=== PATIENT | male | born 1970 | race Caucasian/White ===

== ENCOUNTER 2016-03-15 18:24 | Emergency (ER) | payer OTHER ==
[~2016-03-15] VITALS: Ht 170.2 cm; Wt 87.1 kg
[2016-03-15 19:16] VITALS: BP 154/83
[2016-03-15] MEDS ORDERED: KETOROLAC TROMETHAMINE INJ 60 MG/2 ML VIAL IM ONE ×2 (20:00→20:05)
== END 2016-03-15 20:56 | disposition home or self-care (01) ==
LOC: ER 18:30
DX: M54.5 Low back pain (principal); G89.29 Other chronic pain; M51.26 Other intervertebral disc displacement, lumbar region; Z90.81 Acquired absence of spleen
CPT/HCPCS: A4606; J1885; Z7610

== ENCOUNTER 2016-04-25 23:47 | Emergency (ER) | payer OTHER ==
[~2016-04-25] VITALS: Ht 170.2 cm; Wt 86.2 kg
[2016-04-26] MEDS ORDERED: ONDANSETRON HCL/PF 4 MG/2 ML VIAL ONE (01:24)
[2016-04-26] MEDS ORDERED: HYDROMORPHONE 1 MG/1 ML DISP.SYRIN ONE (01:24)
[2016-04-26] MEDS ORDERED: ONDANSETRON 4 MG TAB.RAPDIS ONE (01:25)
[2016-04-26] MEDS ORDERED: ONDANSETRON 4 MG TAB.RAPDIS SL ONE (01:30)
[2016-04-26] MEDS ORDERED: HYDROMORPHONE 1 MG/1 ML DISP.SYRIN IM ONE (01:30)
[2016-04-26] MEDS ORDERED: DEXAMETHASONE SOD PHOSPHATE 10 MG/ML VIAL ONE (02:28)
[2016-04-26] MEDS ORDERED: DEXAMETHASONE SOD PHOSPHATE 4 MG/ML VIAL IV ONE (02:30)
[2016-04-26 02:37] VITALS: BP 133/78
== END 2016-04-26 02:38 | disposition home or self-care (01) ==
LOC: ER 23:47
DX: M54.5 Low back pain (principal); G89.29 Other chronic pain; M51.26 Other intervertebral disc displacement, lumbar region; Z90.49 Acquired absence of other specified parts of digestive tract; Z98.890 Other specified postprocedural states
CPT/HCPCS: 96372; 99283; A4606; J1100; J1170; J2405; Q0162; Z7610

== ENCOUNTER 2016-08-08 19:28 | Emergency (ER) | payer OTHER ==
[~2016-08-08] VITALS: Ht 170.2 cm; Wt 83.9 kg
--- NOTE | 2016-08-08 21:20 | NUR ---
TO BED 4 AMBULATORY C/O N/V/D SINCE MONDAY. PT AAOX4 NO ACUTE DISTRESS NOTED, RESP EVEN AND UNALBORED. PT DENIES PAIN OR DISCOMFORT AT THIS TIME. [employer] AT BEDSIDE TO EVAL PT WITH ORDERS RECEIVED.
[2016-08-08] MEDS ORDERED: ONDANSETRON HCL/PF 4 MG/2 ML VIAL ONE (21:30)
[2016-08-08] MEDS ORDERED: IV SET PRIMARY 1 EA INFUS.SET MC ONE (21:30)
[2016-08-08] MEDS ORDERED: IV NS 0.9% 2,000 ML ONE (21:30)
[2016-08-08] MEDS ORDERED: ONDANSETRON HCL/PF 4 MG/2 ML VIAL IVP ONE (21:30)
[2016-08-08] MEDS ORDERED: IV NS 0.9% 1,000 ML BAG IV ONE (21:30)
--- NOTE | 2016-08-08 21:30 | NUR ---
STARTED SL 18G TO L AC, BLOOD DRAWN AND SENT TO LAB.
[2016-08-08 21:37] LABS: BASOPHILS % (AUTO) 0.5 % (0.0-2.0); EOSINOPHILS # (AUTO) 0.1 /CMM (0.0-0.7); EOSINOPHILS % (AUTO) 0.8 % (0.0-6.0); HEMATOCRIT 47 % (39-51); HEMOGLOBIN 15.8 g/dL (13.5-17.5); LYMPHOCYTES # (AUTO) 2.7 /CMM (0.8-4.8); LYMPHOCYTES % (AUTO) 32.2 % (20.0-44.0); MEAN CORPUSCULAR HEMOGLOBIN 31 PG (26.0-33.0); MEAN CORPUSCULAR HGB CONC 34 g/dl (31.0-36.0); MEAN CORPUSCULAR VOLUME 91 fL (80-96); MONOCYTES % (AUTO) 11.5 % (2.0-12.0); NEUTROPHILS # (AUTO) 4.6 /CMM (1.8-8.9); PLATELET COUNT (AUTO) 551 /CMM (150-450); RDW COEFFICIENT OF VARIATION 12.4 (11.5-15.0); RED BLOOD CELL COUNT(AUTO) 5.19 MIL/uL (4.5-6.0); WHITE BLOOD COUNT (AUTO) 8.4 K/uL (4.3-11.0)
--- NOTE | 2016-08-08 21:39 | NUR ---
PT MEDICATED BY RN PER ER MD ORDER.
[2016-08-08 21:47] LABS: CALCIUM, SERUM 8.7 mg/dL (8.5-10.1); CREATININE 1.2 mg/dL (0.6-1.3); POTASSIUM 3.6 mmol/L (3.5-5.1)
[2016-08-08 21:53] LABS: ALBUMIN 3.7 g/dL (3.4-5.0); BILIRUBIN,DIRECT 0.1 mg/dL (0.0-0.2); BILIRUBIN,TOTAL 0.4 mg/dL (0.2-1.0); TOTAL PROTEIN, SERUM 7.5 g/dL (6.4-8.2)
--- NOTE | 2016-08-08 22:59 | NUR ---
IV removed. Catheter intact and site benign. Pressure and 4x4 applied to site. No bleeding noted.
--- NOTE | 2016-08-08 22:59 | NUR ---
Patient discharged to home in stable condition. Written and verbal after care instructions given. Patient verbalizes understanding of instruction. ambulatory with a steady gait noted. pt denies n/v
[2016-08-08 23:14] VITALS: BP 148/78
== END 2016-08-08 23:14 | disposition home or self-care (01) ==
LOC: ER 19:30
DX: R11.2 Nausea with vomiting, unspecified (principal); R19.7 Diarrhea, unspecified; F17.200 Nicotine dependence, unspecified, uncomplicated; I10 Essential (primary) hypertension; Z90.81 Acquired absence of spleen
CPT/HCPCS: 36415; 80048-TC; 80076-TC; 83690-TC; 85025-TC; A4606; J2405; J7030; Z7610

== ENCOUNTER 2018-05-01 21:47 | Emergency (ER) | payer OTHER ==
[~2018-05-01] VITALS: Ht 167.6 cm; Wt 83.9 kg
[2018-05-01 21:55] VITALS: BP 148/100
[2018-05-01] MEDS ORDERED: PROCHLORPERAZINE EDISYLATE 10 MG/2 ML VIAL ONE (22:28)
[2018-05-01] MEDS ORDERED: IBUPROFEN 400 MG TABLET ONE (22:28)
[2018-05-01] MEDS ORDERED: IBUPROFEN 400 MG TABLET PO ONE (22:30)
[2018-05-01] MEDS ORDERED: PROCHLORPERAZINE EDISYLATE 10 MG/2 ML VIAL IM ONE (22:30)
--- NOTE | 2018-05-01 22:45 | NUR ---
PER EVETTE RELEASED FROM CUSTODY.
--- NOTE | 2018-05-01 23:03 | NUR ---
Patient discharged to home in stable condition. Written and verbal after care instructions given. Patient verbalizes understanding of instruction. ambulatory with a steady gait. pt provided with homeless resources, food, pt has own clothes, and tap card.
== END 2018-05-01 23:10 | disposition home or self-care (01) ==
LOC: ER 21:50
DX: G89.29 Other chronic pain (principal); M25.562 Pain in left knee; F11.20 Opioid dependence, uncomplicated; M54.9 Dorsalgia, unspecified; Z98.890 Other specified postprocedural states; Z60.2 Problems related to living alone
CPT/HCPCS: 96372; 99283; A4606; J0780

== ENCOUNTER 2018-10-28 23:23 | Emergency (ER) | payer OTHER ==
[~2018-10-28] VITALS: Ht 170.2 cm; Wt 81.6 kg
[2018-10-28 23:25] VITALS: BP 165/106
--- NOTE | 2018-10-28 23:50 | NUR ---
PT CAME IN WITH L EJ 18G. L EJ WAS REMOVED UPON DISCHARGE.
--- NOTE | 2018-10-29 | NUR ---
PT CLEARED FOR D/C, IV removed. Catheter intact and site benign. Pressure and 4x4 applied to site. No bleeding noted.Patient discharged to under [facility]d custody in stable condition. Written and verbal after care instructions given. Patient verbalizes understanding of instruction. pt ambulatory with steady gait.
--- NOTE | 2018-10-29 01:37 | NUR ---
Note darinone in EDM - 10/29/18 at 0139 by ALIS PT CLEARED FOR D/C, IV removed. Catheter intact and site benign. Pressure and 4x4 applied to site. No bleeding noted.Patient discharged to under [facility] custody in stable condition. Written and verbal after care instructions given. Patient verbalizes understanding of instruction. pt ambulatory with steady gait.
== END 2018-10-29 ==
LOC: ER 23:35
DX: F11.90 Opioid use, unspecified, uncomplicated (principal); Z98.890 Other specified postprocedural states; Z60.2 Problems related to living alone